=== PATIENT | male | born 1975 | race African-American/Black ===

== ENCOUNTER 2017-11-21 17:27 | Emergency (ER) | payer SELFPAY ==
[~2017-11-21] VITALS: Ht 170.2 cm; Wt 84.5 kg
[2017-11-21 17:38] VITALS: Ht 170.2 cm; Wt 84.5 kg
[2017-11-21 19:01] VITALS: BP 150/94
== END 2017-11-21 19:01 | disposition home or self-care (01) ==
LOC: ED 17:27
DX: J06.9 Acute upper respiratory infection, unspecified (principal); J45.909 Unspecified asthma, uncomplicated; Z88.0 Allergy status to penicillin
CPT/HCPCS: Q0092